=== PATIENT | female | born 1975 | race Caucasian/White ===

== ENCOUNTER 2019-05-29 09:11 | Outpatient (CLI) | payer OTHER ==
--- NOTE | 2019-05-29 10:46 | ULT ---
ULTRASOUND PELVIC ULTRASOUND TRANSVAGINAL DOPPLER DUPLEX: DATE: 05/29/2019 HISTORY: Left-sided pelvic pain in 43-year-old female. TECHNIQUE: Transabdominal transducer and endovaginal transducer used to visualize intrapelvic contents with han scale, color-flow, and spectral analysis. FINDINGS: Uterus: 8 x 5 x 5.5 cm. Endometrial stripe: 1.2 cm (12 mm). Uterus retroflexed. No large uterine leiomyoma identified. Right ovary: 3 x 1.5 x 1.5 cm with flow demonstrated by Doppler. Left ovary: 4.5 x 2 cm with a 2.5 x 2 x 3 cm cyst with small region of thrombus, while the majority o f the volume of the cyst is anechoic. Several prominent follicles in the left ovary. For example, a 1.2 cm follicle. Blood flow not well demonstrated in left ovary, probably for technical reasons. Small amount of free fluid in the cul-de-sac. IMPRESSION: 3 cm hemorrhagic left ovarian cyst.
== END 2019-05-29 09:12 | disposition home or self-care (01) ==
LOC: MADULT 09:11
PROVIDERS: ATTEND Family Medicine
DX: N94.10 Unspecified dyspareunia (principal); R10.2 Pelvic and perineal pain; N83.202 Unspecified ovarian cyst, left side
CPT/HCPCS: 76856